=== PATIENT | female | born 1965 | race Caucasian/White ===

== ENCOUNTER 2021-06-25 07:03 | Emergency (ER) | payer OTHER ==
[~2021-06-25] VITALS: Ht 165.1 cm; Wt 95.3 kg
[2021-06-25 07:42] VITALS: BP 114/79
--- NOTE | 2021-06-25 08:53 | NUR ---
Patient eloped from facility. ER MD notified.
== END 2021-06-25 09:09 | disposition left against medical advice (07) ==
LOC: ER 07:03
DX: Z53.21 Procedure and treatment not carried out due to patient leaving prior to being seen by health care provider (principal)